=== PATIENT | female | born 1965 | race Two or more races ===

== ENCOUNTER 2025-03-18 11:55 | Outpatient (CLI) | payer OTHER | END 2025-03-18 12:10 | disposition home or self-care (01) | LOC: RAD 11:55 | PROVIDERS: ATTEND Surgery | DX: K62.5 Hemorrhage of anus and rectum (principal); K59.09 Other constipation; K64.8 Other hemorrhoids; K62.89 Other specified diseases of anus and rectum; Z80.0 Family history of malignant neoplasm of digestive organs; Z86.0100 Personal history of colon polyps, unspecified ==